=== PATIENT | male | born 1985 ===

== ENCOUNTER 2024-10-01 04:26 | Emergency (ER) | payer SELFPAY ==
[2024-10-01 04:28] VITALS: BP 163/106; PULSE 111; RESP 18; TEMP 36.6; O2SAT 100
--- NOTE | 2024-10-01 04:57 | PC.NURSE ---
Pt's mom ambulated to desk and states If its gonna be much longer were gonna leave and go to [place] This RN notified her that I cannot give out any wait times and that we are working hard to get everyone seen. Pt and his mom then ambulated out of the ED w/ steady gait and said we're leaving!!
== END 2024-10-01 05:26 | disposition left against medical advice (07) ==
DX: L03.011 Cellulitis of right finger (principal)
CPT/HCPCS: 99199